=== PATIENT | female | born 1985 | race African-American/Black ===

== ENCOUNTER 2017-04-12 15:11 | Emergency (ER) | payer OTHER ==
[2017-04-12 16:02] VITALS: BP 136/76; PULSE 63; TEMP 98.3; BMI 26.6
--- NOTE | 2017-04-12 16:55 | PDOC ---
History of Present Illness - General Stated Complaint: FALL, LEG PAIN Time Seen by Provider: 04/12/17 16:23 History Source: Patient Exam Limitations: No Limitations - History of Present Illness Initial Comments: CHIEF COMPLAINT: 31 y/o afebrile female with no significant PMH c/o multiple cuts and scrapes s/p fall at work today. HISTORY OF PRESENT ILLNESS: The patient fell at work and scraped her right leg , left arm and right hand. She denies head trauma, LOC, neck pain, n/v/d. She is able to ambulate and move all of the joints affected. Vital signs on arrival are within normal limits. REVIEW OF SYSTEMS: GENERAL/CONSTITUTIONAL: No fever/chills. No weakness. No weight change. HEAD, EYES, EARS, NOSE AND THROAT: No change in vision. No ear pain or discharge. No sore throat. MUSCULOSKELETAL: No joint or muscle swelling or pain. No neck or back pain. SKIN: Scrapes to right leg, left arm and right hand. NEUROLOGIC: No headache, vertigo, loss of consciousness, or loss of sensation. PHYSICAL EXAM: VITAL_SIGNS: within normal limits GENERAL_APPEARANCE: alert, cooperative, no obvious discomfort. Pt is ambulatory with normal gait. MENTAL_STATUS: speech clear, oriented X 3, responds appropriately to questions. NEURO: motor intact and sensory intact in injured extremity. EXTREMITIES: 3cm x 1.5cm abrasion to dorsal, proximal left forearm without active bleeding. 2cm linear abrasion to right proximal lower extremity without active bleeding and already in primary intention with underlying swelling. Round, jun sized abrasion to palm of right hand. Full ROM of all affected joints without crepitus or deformities. SKIN: warm, dry, good color. Past History - Past Medical History Allergies/Adverse Reactions: Allergies Allergy/AdvReac Type Severity Reaction Status Date / Time No Known Allergies Allergy Verified 04/12/17 16:02 Home Medications: Ambulatory Orders Vit/Iron Fumarate/FA [ Tablet] 1 each PO DAILY 10/12/15 Vitamins (Sjr) - 1 tab PO DAILY 04/13/16 Ibuprofen [Motrin -] 600 mg PO QID #28 tablet 04/22/16 Asthma: No Cancer: No Cardiac Disorders: No Diabetes: No HTN: Yes Seizures: No Thyroid Disease: No - Reproductive History (#): 11 Para: 2 Therapeutic (s) & number: (6) Spontaneous : 2 - Immunization History Immunization Up to Date: Yes - Psycho/Social/Smoking Cessation Hx Anxiety: No Suicidal Ideation: No Smoking Status: Yes Smoking History: Current every day smoker Have you smoked in the past 12 months: Yes Number of Cigarettes Smoked Daily: 5 Information on smoking cessation initiated: No Hx Alcohol Use: No Drug/Substance Use Hx: No Substance Use Type: None Hx Substance Use Treatment: No *Physical Exam - Vital Signs Last Vital Signs Temp Pulse Resp BP Pulse Ox 98.3 F 63 18 136/76 100 04/12/17 15:53 04/12/17 15:53 04/12/17 15:53 04/12/17 15:53 04/12/17 15:53 Medical Decision Making - Medical Decision Making A/P: 31 y/o female with multiple abrasions. Cleaned all abrasions with hydrogen peroxide. Applied bacitracin to right leg and left arm abrasions and covered with bandaids. Instructed the patient to keep the areas clean and dry. Suggested she apply neosporin daily after washing and apply ice to any painful areas. Pt instructed to f/u with her doctor in 1 week and return to the ER with any worsening or concerning symptoms. The patient verbalizes understanding of all instructions, has no further questions and is awaiting discharge. *DC/Admit/Observation/Transfer Diagnosis at time of Disposition: Fall, Abrasions of multiple sites - Discharge Dispostion Disposition: HOME Condition at time of disposition: Good - Patient Instructions Printed Discharge Instructions: DI for Abrasion, How To Perform RICE (Rest, Ice , Compress, Elevate) Additional Instructions: Discharge Instructions: -Keep wounds clean and apply Neosporin daily -Keep wounds covered until healed -Apply ice to swollen areas and take Motrin if needed for pain -Return to the ER with any worsening or concerning symptoms - Post Discharge Activity Work/School Note: Back to Work
== END 2017-04-12 17:04 | disposition home or self-care (01) ==
LOC: JERFT 15:11
DX: S80.811A Abrasion, right lower leg, initial encounter (principal); S40.812A Abrasion of left upper arm, initial encounter; S60.511A Abrasion of right hand, initial encounter; I10 Essential (primary) hypertension; F17.210 Nicotine dependence, cigarettes, uncomplicated; W18.39XA Other fall on same level, initial encounter; Y93.89 Activity, other specified; Y92.12 Nursing home as the place of occurrence of the external cause; Y99.0 Civilian activity done for income or pay
CPT/HCPCS: 99281-25

== ENCOUNTER 2017-04-14 15:49 | Emergency (ER) | payer OTHER ==
[2017-04-14 15:54] VITALS: BP 148/91; PULSE 75; TEMP 98.4; BMI 26.6
--- NOTE | 2017-04-14 16:13 | PDOC ---
History of Present Illness - General Chief Complaint: Pain Stated Complaint: RT LEG PAIN Time Seen by Provider: 04/14/17 15:55 History Source: Patient Exam Limitations: No Limitations - History of Present Illness Initial Comments: 04/14/17 16:39 Chief Complaint: "My R leg hurts" Pt. is a 31 y/o female with PMH of HTN who presents to the ED c/o R leg pain. Pt. states she was seen here two days ago after she fell at work. Pt. states she was treated and after she went home developed worsening pain in her R leg. States that she has shooting pain down to her foot and admits to numbness and tingling down her leg and she is now limping while walking. Denies saddle anesthesia, and loss of bladder or bowel function. Pt. states that Tylenol has only partially helped her symptoms. Denies fevers, chills, weakness, N/V/D. Past History - Travel Traveled outside of the country in the last 30 days: No Close contact w/someone who was outside of country & ill: No - Past Medical History Allergies/Adverse Reactions: Allergies Allergy/AdvReac Type Severity Reaction Status Date / Time No Known Allergies Allergy Verified 04/14/17 15:54 Home Medications: Ambulatory Orders Cyclobenzaprine HCl [Flexeril 10 mg] 10 mg PO HS PRN #10 tablet 04/14/17 Labetalol HCl [Normodyne -] 200 mg PO ASDIR 04/14/17 Asthma: No Cancer: No Cardiac Disorders: No Diabetes: No HTN: Yes Seizures: No Thyroid Disease: No - Reproductive History (#): 11 Para: 2 Therapeutic (s) & number: (6) Spontaneous : 2 - Immunization History Immunization Up to Date: Yes - Psycho/Social/Smoking Cessation Hx Anxiety: No Suicidal Ideation: No Smoking Status: Yes Smoking History: Current every day smoker Have you smoked in the past 12 months: Yes Number of Cigarettes Smoked Daily: 5 Information on smoking cessation initiated: No Hx Alcohol Use: No Drug/Substance Use Hx: No Substance Use Type: None Hx Substance Use Treatment: No Review of Systems - Review of Systems Constitutional: No: Chills, Fever, Weakness ABD/GI: No: Other (incontinence) : No: Incontinence Musculoskeletal: Yes: Muscle Pain Integumentary: No: Bruising, Erythema Neurological: Yes: Numbness, Paresthesia, Unsteady Gait. No: Weakness *Physical Exam - Vital Signs Last Vital Signs Temp Pulse Resp BP Pulse Ox 98.4 F 75 18 148/91 100 04/14/17 15:50 04/14/17 15:50 04/14/17 15:50 04/14/17 15:50 04/14/17 15:50 - Physical Exam General Appearance: Yes: Nourished, Appropriately Dressed, Mild Distress Neck: positive: Trachea midline, Supple. negative: Tender, Rigid Vascular Pulses: Dorsalis-Pedis (R): 2+, Doralis-Pedis (L): 2+ Musculoskeletal: positive: Muscle Spasm (palpable knot over the R back at the level of L4-5), Other (Positive Flip test). negative: Decreased Range of Motion (Pain with full ROM), Vertebral Tenderness Extremity: positive: Normal Capillary Refill, Normal Inspection, Normal Range of Motion Integumentary: positive: Normal Color, Dry, Warm Neurologic: positive: patch setter II-XII NML intact, Fully Oriented, Alert, Normal Mood/ Affect, Normal Response, Motor Strength 5/5, Other (Gait with limp, intact tip toe, heel walks. (-) rhombergs sign) Deep Tendon Reflexes: Knee (L): 2+, Knee (R): 2+ Medical Decision Making - Medical Decision Making 04/14/17 17:32 Pt. is a 31 y/o female who presents to the ED with back pain and R leg pain after falling two days ago. Pt has a palpable knot over her R lower back at the level of L4-L5. In the setting of (+) flip test, most likely back spasm with sciatica. Will prescribe Tylenol and flexaril to help with the spasm. Gave pt return instructions for worsening back pain or loss of bladder or bowel function. Pt. understands all discharge instructions and all questions were answered at this time. *DC/Admit/Observation/Transfer Diagnosis at time of Disposition: Low back pain Qualifiers: Chronicity: acute Back pain laterality: right Sciatica presence: with sciatica Sciatica laterality: sciatica of right side Qualified Code(s): M54.41 - Lumbago with sciatica, right side - Discharge Dispostion Admit: No - Prescriptions Prescriptions: Cyclobenzaprine HCl [Flexeril 10 mg] 10 mg PO HS PRN #10 tablet PRN Reason: spasm - Referrals Referrals: Rene Erazo MD [Staff Physician] - - Patient Instructions Printed Discharge Instructions: DI for Low Back Pain Additional Instructions: You have back pain that is causing your numbness and tingling. You were prescribed Flexeril for the spasm. Take the flexaril tonight. Tomorrow take one Flexeril every 8 hours. After tomorrow take the Flexeril at night as needed for spasm. Do not drive after taking the Flexeril. Take Tylenol as needed for pain. Gentle stretching will help your symptoms. You may use a heating pad or twenty minute periods for 2-4 times a day. Follow up with your primary care provider. If you symptoms do not resolve in 1-2 weeks, follow up with ortho. There is a referral for an orthopedist in your paper work. Return to the ED if you have worsening of your symptoms - Post Discharge Activity Work/School Note: Back to Work
[2017-04-14] MEDS ORDERED: ACETAMINOPHEN 325 MG TABLET (FP) PO ONE (16:35)
[2017-04-14] MEDS ORDERED: ACETAMINOPHEN 325 MG TABLET (FP) ONE (16:39)
== END 2017-04-14 17:08 | disposition home or self-care (01) ==
LOC: JER 15:49 → JERFT 15:49
DX: M54.41 Lumbago with sciatica, right side (principal); W18.30XA Fall on same level, unspecified, initial encounter; Y93.9 Activity, unspecified; Y92.9 Unspecified place or not applicable; Y99.0 Civilian activity done for income or pay; I10 Essential (primary) hypertension; F17.210 Nicotine dependence, cigarettes, uncomplicated
CPT/HCPCS: 99281-25

== ENCOUNTER 2017-08-16 17:31 | Emergency (ER) | payer OTHER ==
[2017-08-16 17:55] VITALS: BP 135/78; PULSE 90; TEMP 98.5; BMI 27.8
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
== END 2017-08-16 21:53 | disposition home or self-care (01) ==
LOC: JER 17:31
PROC: 3E023NZ Introduction of Analgesics, Hypnotics, Sedatives into Muscle, Percutaneous Approach (ICD-10-PCS; principal; 2017-08-16)
PROC: 3E0233Z Introduction of Anti-inflammatory into Muscle, Percutaneous Approach (ICD-10-PCS; 2017-08-16)
PROC: 3E023GC Introduction of Other Therapeutic Substance into Muscle, Percutaneous Approach (ICD-10-PCS; 2017-08-16)
DX: H11.32 Conjunctival hemorrhage, left eye (principal); R51 Headache; I10 Essential (primary) hypertension; F17.210 Nicotine dependence, cigarettes, uncomplicated
CPT/HCPCS: 70450-TC; 84703; 99282-25

== ENCOUNTER 2017-08-18 15:32 | Emergency (ER) | payer OTHER ==
[2017-08-18 15:44] VITALS: BP 141/76; PULSE 67; TEMP 98.9; BMI 28.0
--- NOTE | 2017-08-18 16:46 | PDOC ---
History of Present Illness <Sheng Peña - Last Filed: 08/18/17 17:46> - General History Source: Patient Exam Limitations: No Limitations - History of Present Illness Initial Comments: 08/18/17 18:00 Patient is a 32 year old female with a significant past medical history of HTN who presents to the ED with complaints of head pain that began 2 days ago. Patient reports experiencing head pain behind her eyes that began 2 days prior and has showed no signs of subsiding. Patient reports pain is an intense pain behind her eyes that do not allow her to move her eyes up or down without causing increased pain. She reports increase in intensity with light. Patient states she has not taken any medication for pain stating she will have to take 8 tylenol in order to relieve the pain. Patient was given head CT two days ago with results being negative. Denies chest pain, SOB. Denies nausea, vomiting. Denies fevers, chills. Denies any other symptoms. Allergies: None Social history: Current everyday smoker. No alcohol. No illicit drugs. Surgical history: None PMD: None <Scooter Lopez - Last Filed: 08/18/17 18:00> - General Chief Complaint: Headache Stated Complaint: REVISIT/ HEADACHES, EYE PAIN Time Seen by Provider: 08/18/17 16:43 Past History - Past Medical History Asthma: No Cancer: No Cardiac Disorders: No Diabetes: No HTN: Yes Seizures: No Thyroid Disease: No - Reproductive History (#): 11 Para: 2 Therapeutic (s) & number: (6) Spontaneous : 2 - Immunization History Immunization Up to Date: Yes - Suicide/Smoking/Psychosocial Hx Smoking Status: Yes Smoking History: Current every day smoker Have you smoked in the past 12 months: Yes Number of Cigarettes Smoked Daily: 5 Information on smoking cessation initiated: Yes 'Breaking Loose' booklet given: 08/18/17 Hx Alcohol Use: No Drug/Substance Use Hx: No Substance Use Type: None Hx Substance Use Treatment: No <Sheng Peña - Last Filed: 08/18/17 17:46> <Scooter Lopez - Last Filed: 08/18/17 18:00> - Past Medical History Allergies/Adverse Reactions: Allergies Allergy/AdvReac Type Severity Reaction Status Date / Time No Known Allergies Allergy Verified 08/18/17 15:40 Home Medications: Ambulatory Orders Cyclobenzaprine HCl [Flexeril 10 mg] 10 mg PO HS PRN #10 tablet 04/14/17 Labetalol HCl [Normodyne -] 200 mg PO ASDIR 04/14/17 Meloxicam [Mobic (Nf) -] 15 mg PO ASDIR 08/16/17 Ondansetron [Zofran Odt -] 4 mg SL TID #21 od.tablet 08/18/17 Oxycodone HCl/Acetaminophen [Percocet 5-325 mg Tablet] 1 - 2 tab PO Q6H #20 tab MDD 6 08/18/17 Review of Systems - Review of Systems Able to Perform ROS?: Yes Comments:: 08/18/17 18:00 GENERAL/CONSTITUTIONAL: No fever or chills. No weakness. HEAD, EYES, EARS, NOSE AND THROAT: No change in vision. No ear pain or discharge. No sore throat. CARDIOVASCULAR: No chest pain or shortness of breath. RESPIRATORY: No cough, wheezing, or hemoptysis. GASTROINTESTINAL: No nausea, vomiting, diarrhea or constipation. GENITOURINARY: No dysuria, frequency, or change in urination. MUSCULOSKELETAL: No joint or muscle swelling or pain. No neck or back pain. SKIN: No rash NEUROLOGIC: +Headache No vertigo, loss of consciousness, or change in strength/sensation. ENDOCRINE: No increased thirst. No abnormal weight change. HEMATOLOGIC/LYMPHATIC: No anemia, easy bleeding, or history of blood clots. ALLERGIC/IMMUNOLOGIC: No hives or skin allergy. All Other Systems: Reviewed and Negative <Scooter Lopez - Last Filed: 08/18/17 18:00> *Physical Exam - Vital Signs Last Vital Signs Temp Pulse Resp BP Pulse Ox 98.9 F 67 18 141/76 100 08/18/17 15:42 08/18/17 15:42 08/18/17 15:42 08/18/17 15:42 08/18/17 15:42 <Sheng Peña - Last Filed: 08/18/17 17:46> - Vital Signs Last Vital Signs Temp Pulse Resp BP Pulse Ox 98.9 F 67 18 141/76 100 08/18/17 15:42 08/18/17 15:42 08/18/17 15:42 08/18/17 15:42 08/18/17 15:42 - Physical Exam Comments: 08/18/17 18:00 GENERAL: Awake, alert, and fully oriented, in no acute distress HEAD: +Facial edema. No signs of trauma EYES: PERRLA, EOMI, sclera anicteric, conjunctiva clear ENT: +Conjunctival hemorrhage of left eye. +Extraocular muscles intact. Auricles normal inspection, hearing grossly normal, nares patent, oropharynx clear without exudates. Moist mucosa NECK: Normal ROM, supple, no lymphadenopathy, JVD, or masses LUNGS: Breath sounds equal, clear to auscultation bilaterally. No wheezes, and no crackles HEART: Regular rate and rhythm, normal S1 and S2, no murmurs, rubs or gallops ABDOMEN: Soft, nontender, normoactive bowel sounds. No guarding, no rebound. No masses EXTREMITIES: Normal range of motion, no edema. No clubbing or cyanosis. No cords, erythema, or tenderness NEUROLOGICAL: Cranial nerves II through XII grossly intact. Normal speech, normal gait SKIN: Warm, Dry, normal turgor, no rashes or lesions noted <Scooter Lopez - Last Filed: 08/18/17 18:00> *DC/Admit/Observation/Transfer - Discharge Dispostion Admit: No - Attestations Physician Attestion: 08/18/17 16:45 I, Dr. Sheng Peña, attest that this document has been prepared under my direction and personally reviewed by me in its entirety. I further attest, that it accurately reflects all work, treatment, procedures and medical decision -making performed by me. <Sheng Peña - Last Filed: 08/18/17 17:46> - Attestations Scribe Attestion: 08/18/17 18:00 Documentation prepared by Scooter Lopez, acting as medical records manager for Sheng Peña MD/DO. <Scooter Lopez - Last Filed: 08/18/17 18:00> Diagnosis at time of Disposition: Facial pain, acute - Discharge Dispostion Disposition: HOME Condition at time of disposition: Good - Prescriptions Prescriptions: Oxycodone HCl/Acetaminophen [Percocet 5-325 mg Tablet] 1 - 2 tab PO Q6H #20 tab MDD 6 Ondansetron [Zofran Odt -] 4 mg SL TID #21 od.tablet - Referrals Referrals: STAFF,NOT ON [Primary Care Provider] - - Patient Instructions Printed Discharge Instructions: Eye Contusion, Contusion, DI for Eye Contusion , DI for Contusion Additional Instructions: Maureen- I am sorry that you have to hurt so much right now. Take the percocet only if you absolutely need it. It can be addicting. It will upset your stomach..... it upsets everyone's stomach so take the zofran before you take the percocet. Return to us if worse or new symptoms occur Best- Dr. Sheng Peña
[2017-08-18] MEDS ORDERED: ONDANSETRON *ODT* 4 MG TABLET SL ONE (17:42)
[2017-08-18] MEDS ORDERED: KETOROLAC TROMETHAMINE 60 MG/2 ML VIAL IM ONE (17:42)
[2017-08-18] MEDS ORDERED: HYDROmorphone HCL CARPU-JECT 1 MG/1 ML DISP.SYRIN IM ONE (17:42)
[2017-08-18] MEDS ORDERED: HYDROmorphone HCL CARPU-JECT 1 MG/1 ML DISP.SYRIN ONE (17:50)
[2017-08-18] MEDS ORDERED: ONDANSETRON *ODT* 4 MG TABLET ONE (17:50)
[2017-08-18] MEDS ORDERED: KETOROLAC TROMETHAMINE 60 MG/2 ML VIAL ONE (17:50)
== END 2017-08-18 18:37 | disposition home or self-care (01) ==
LOC: JER 15:32
PROC: 3E033GC Introduction of Other Therapeutic Substance into Peripheral Vein, Percutaneous Approach (ICD-10-PCS; principal; 2017-08-18)
PROC: 3E033NZ Introduction of Analgesics, Hypnotics, Sedatives into Peripheral Vein, Percutaneous Approach (ICD-10-PCS; 2017-08-18)
PROC: 3E0333Z Introduction of Anti-inflammatory into Peripheral Vein, Percutaneous Approach (ICD-10-PCS; 2017-08-18)
DX: J34.89 Other specified disorders of nose and nasal sinuses (principal)
CPT/HCPCS: 99282-25

== ENCOUNTER 2017-08-25 13:48 | Emergency (ER) | payer OTHER ==
[2017-08-25 13:54] VITALS: BP 135/76; PULSE 90; TEMP 99; BMI 28.0
--- NOTE | 2017-08-25 14:35 | PDOC ---
Suture Removal/Wound Check HPI - History of Present Illness Chief Complaint: Suture/Staple Removal(Here) Stated Complaint: SUTURE/STAPLE REMOVAL Time Seen by Provider: 08/25/17 14:29 History Source: Yes: Patient Exam Limitations: Yes: No Limitations Treated at: [facility] Date of Last ED visit: 08/16/17 - Previous ED Treatment Type of procedure performed on last visit: Yes: Laceration Repair Tetanus Immunization: Yes: Up to Date Antibiotics Prescribed: No Past History - Past Medical History Allergies/Adverse Reactions: Allergies Allergy/AdvReac Type Severity Reaction Status Date / Time No Known Allergies Allergy Verified 08/25/17 13:54 Home Medications: Ambulatory Orders NK [No Known Home Medication] 08/25/17 Asthma: No Cancer: No Cardiac Disorders: No Diabetes: No HTN: Yes Seizures: No Thyroid Disease: No - Reproductive History (#): 11 Para: 2 Therapeutic (s) & number: (6) Spontaneous : 2 - Immunization History Immunization Up to Date: Yes - Suicide/Smoking/Psychosocial Hx Smoking Status: Yes Smoking History: Never smoked Have you smoked in the past 12 months: Yes Number of Cigarettes Smoked Daily: 5 Information on smoking cessation initiated: No 'Breaking Loose' booklet given: 08/18/17 Hx Alcohol Use: No Drug/Substance Use Hx: No Substance Use Type: None Hx Substance Use Treatment: No Suture Removal/Wound Check PE - Physical Exam Laceration/Wound Check Symptoms: reports: None Current Severity Level: None Maximum Severity Level: None Pain Localization: None *Review of Systems - Review of Systems Constitutional: No: Symptoms Reported Integumentary: No: Symptoms Reported Medical Decision Making - Medical Decision Making 08/25/17 14:37 A/P: Patient here for suture removal 7 sutures removed from forehead was no localized suture irritation. Encouraged to follow up with neurology for persistent headaches. No keloid noted today upon arrival. Will follow up as needed. *DC/Admit/Observation/Transfer Diagnosis at time of Disposition: Visit for suture removal - Discharge Dispostion Disposition: HOME Condition at time of disposition: Good Admit: No - Referrals Referrals: Rene Kumar MD [Staff Physician] - Jose Jara MD [Staff Physician] - - Patient Instructions Printed Discharge Instructions: DI for Suture Removal Additional Instructions: Please return to the ER if any concerns, please try to keep area out of direct sunlight.
== END 2017-08-25 14:42 | disposition home or self-care (01) ==
LOC: JERFT 13:48
DX: Z48.02 Encounter for removal of sutures (principal)
CPT/HCPCS: 99281-25

== ENCOUNTER 2017-09-21 10:55 | Emergency (ER) | payer OTHER ==
[2017-09-21 11:07] VITALS: TEMP 98.2; BMI 28.0
[2017-09-21] MEDS ORDERED: ONDANSETRON 4 MG/2 ML VIAL IVPUSH ONE (11:52)
[2017-09-21] MEDS ORDERED: KETOROLAC TROMETHAMINE 30 MG/1 ML VIAL IVPUSH ONE (11:52)
[2017-09-21] MEDS ORDERED: SODIUM CHLORIDE 1,000 ML IV STA (11:53)
[2017-09-21] MEDS ORDERED: METOCLOPRAMIDE HCL INJECTION 10 MG/2 ML VIAL IVPB ONE (11:53)
--- NOTE | 2017-09-21 12:03 | PDOC ---
History of Present Illness - General Chief Complaint: Nausea/Vomiting Stated Complaint: VOMITING Time Seen by Provider: 09/21/17 11:39 History Source: Patient - History of Present Illness Timing/Duration: reports: constant Quality: reports: severe Abdominal Pain Onset Location: reports: generalized abdomen Past History - Past Medical History Allergies/Adverse Reactions: Allergies Allergy/AdvReac Type Severity Reaction Status Date / Time No Known Allergies Allergy Verified 09/21/17 11:07 Home Medications: Ambulatory Orders Labetalol HCl [Normodyne -] 200 mg PO DAILY #30 tablet 09/21/17 Asthma: No Cancer: No Cardiac Disorders: No COPD: No Diabetes: No HTN: Yes Seizures: No Thyroid Disease: No - Reproductive History (#): 11 Para: 2 Therapeutic (s) & number: (6) Spontaneous : 2 - Immunization History Immunization Up to Date: Yes - Suicide/Smoking/Psychosocial Hx Smoking Status: Yes Smoking History: Current every day smoker Have you smoked in the past 12 months: Yes Number of Cigarettes Smoked Daily: 3 Information on smoking cessation initiated: No 'Breaking Loose' booklet given: 08/18/17 Hx Alcohol Use: Yes (SOCIAL) Drug/Substance Use Hx: No Substance Use Type: None Hx Substance Use Treatment: No Review of Systems - Review of Systems Constitutional: Yes: Malaise. No: Chills, Fever HEENTM: No: Blurred Vision ABD/GI: Yes: Nausea, Vomiting. No: Blood Streaked Bowels, Constipated, Diarrhea : No: Dysuria, Flank Pain, Hematuria Neurological: Yes: Headache. No: Dizziness *Physical Exam - Vital Signs Last Vital Signs Temp Pulse Resp BP Pulse Ox 98.2 F 65 20 155/112 100 09/21/17 11:03 09/21/17 11:03 09/21/17 11:03 09/21/17 11:03 09/21/17 11:03 - Physical Exam General Appearance: Yes: Appropriately Dressed, Moderate Distress HEENT: positive: Normal Voice Neck: positive: Supple Respiratory/Chest: positive: Lungs Clear, Normal Breath Sounds. negative: Respiratory Distress Cardiovascular: positive: Regular Rate, S1, S2 Gastrointestinal/Abdominal: positive: Tender (to mid upper abd, no RUQ ttp and NT over mcburneys) Musculoskeletal: negative: CVA Tenderness Integumentary: positive: Dry, Warm Neurologic: positive: Fully Oriented, Alert, Normal Mood/Affect ED Treatment Course - LABORATORY CBC & Chemistry Diagram: 09/21/17 12:19 09/21/17 12:19 - RADIOLOGY Radiology Studies Ordered: Category Date Time Status HEAD CT WITHOUT CONTRAST [CT] Stat CT Scan 09/21/17 11:53 Ordered Medical Decision Making - Medical Decision Making 09/21/17 11:53 32-year-old female, history of hypertension, non-compliant with meds x several months, alcohol abuse, almost daily marijuana use, here with abdominal pain. Patient reports waking up with severe diffuse abdominal pain this morning with multiple episodes of non-bloody, nausea, vomiting. Denies change in bowel movements, dysuria, fever or chills. Denies history of similar episodes. No unusual food, sick contacts or recent travel. Also complaining of intermittent diffuse headache x several months. No visual changes, slurred speech or focal weakness. See exam Abd pain w/ n/v Possible gastritis vs cyclical n/v 2/2 cannibus use vs pancreatitis given ETOH abuse, less likely appy, r/o preg -pain control -antiemeetic -IVF -labs -dispo pending [facility] Non-compliant w/ BP meds BP elevated in ED, no focal deficits -will check head CT 09/21/17 12:04 09/21/17 14:[address] unremarkable. Pt well radha now and reports feeling much better. is able to pa po. Pt advised to refrain from marijuana use. Refill of labetalol sent to pharmacy. Pt to f/u with her PMD 09/21/17 14:10 09/21/17 14:11 *DC/Admit/Observation/Transfer Diagnosis at time of Disposition: Abdominal pain Qualifiers: Abdominal location: generalized Qualified Code(s): R10.84 - Generalized abdominal pain; R10.84 - Generalized abdominal pain - Discharge Dispostion Disposition: HOME Condition at time of disposition: Improved - Prescriptions Prescriptions: Labetalol HCl [Normodyne -] 200 mg PO DAILY #30 tablet - Patient Instructions Printed Discharge Instructions: DI for Abdominal Pain-Adult Additional Instructions: Maintain adequate hydration and take tylenol as needed for pain Refrain from excessive ETOH or marijuana use as can cause abd pain and nausea, vomiting Take BP medications as directed and follow up with PMD - Post Discharge Activity Forms/Work/School Notes: Back to Work
[2017-09-21] MEDS ORDERED: KETOROLAC TROMETHAMINE 30 MG/1 ML VIAL ONE (12:05)
[2017-09-21] MEDS ORDERED: METOCLOPRAMIDE HCL INJECTION 10 MG/2 ML VIAL ONE (12:05)
[2017-09-21] MEDS ORDERED: ONDANSETRON 4 MG/2 ML VIAL ONE (12:06)
[2017-09-21 12:32] LABS: BASOPHIL 0.7 % (0-2.0); EOSINOPHIL 1.8 % (0-4.5); MCH 28.3 pg (25.7-33.7); MCHC 33.3 g/dl (32.0-36.0); MEAN CELL VOLUME 84.9 fl (80-96); MEAN PLT VOLUME 9.4 fl (7.5-11.1); NEUTROPHILS 75.7 % (42.8-82.8); PLATELET COUNT 252 K/MM3 (134-434); RDW 13.6 % (11.6-15.6); WHITE BLOOD COUNT 6.6 K/mm3 (4.0-10.0)
[2017-09-21 13:05] LABS: ALBUMIN 4.4 g/dl (3.4-5.0); ANION GAP 6 (8-16); BILIRUBIN,TOTAL 0.3 mg/dL (0.2-1.0); CALCIUM 9.1 mg/dL (8.5-10.1); CO2 29 mmol/L (21-32); CREATININE 0.9 mg/dL (0.55-1.02); GLUCOSE,RANDOM 87 mg/dL (74-106); SGOT/AST 15 U/L (15-37); SGPT/ALT 22 U/L (12-78); TOT PROT 8.2 g/dl (6.4-8.2)
[2017-09-21 13:06] LABS: ALK PHOS 81 U/L (45-117)
[2017-09-21 14:53] VITALS: BP 126/81; PULSE 60
== END 2017-09-21 14:53 | disposition home or self-care (01) ==
LOC: JER 10:55
PROC: 3E0333Z Introduction of Anti-inflammatory into Peripheral Vein, Percutaneous Approach (ICD-10-PCS; principal; 2017-09-21)
PROC: 3E033GC Introduction of Other Therapeutic Substance into Peripheral Vein, Percutaneous Approach (ICD-10-PCS; 2017-09-21)
PROC: 3E0337Z Introduction of Electrolytic and Water Balance Substance into Peripheral Vein, Percutaneous Approach (ICD-10-PCS; 2017-09-21)
DX: R10.84 Generalized abdominal pain (principal); F17.210 Nicotine dependence, cigarettes, uncomplicated
CPT/HCPCS: 36415; 70450-TC; 80053; 83690; 84702; 85025; 99282-25

== ENCOUNTER 2018-09-17 12:27 | Emergency (ER) | payer OTHER ==
[2018-09-17 12:32] VITALS: BP 117/87; PULSE 101; TEMP 98.3; BMI 29.5
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
== END 2018-09-17 13:42 | disposition home or self-care (01) ==
LOC: JERFT 12:27 → JER 12:27 → JERFT 13:42
PROC: 2W3CX1Z Immobilization of Right Lower Arm using Splint (ICD-10-PCS; principal; 2018-09-17)
DX: S63.601A Unspecified sprain of right thumb, initial encounter (principal); W19.XXXA Unspecified fall, initial encounter; Y93.89 Activity, other specified; Y92.89 Other specified places as the place of occurrence of the external cause; Y99.8 Other external cause status; I10 Essential (primary) hypertension; F17.210 Nicotine dependence, cigarettes, uncomplicated
CPT/HCPCS: 29125; 73110-TC-RT-FY; 73130-TC-RT-FY; 99281-25

== ENCOUNTER 2019-12-31 08:48 | Emergency (ER) | payer OTHER ==
[2019-12-31 09:00] VITALS: BP 118/70; PULSE 88; TEMP 97.8; BMI 29.5
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
[2019-12-31] MEDS ORDERED: LIDOCAINE 5% TOPICAL PATCH TP ONE (09:35)
[2019-12-31] MEDS ORDERED: ACETAMINOPHEN 325 MG TABLET (FP) PO ONE (09:35)
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
[2019-12-31] MEDS ORDERED: ACETAMINOPHEN 325 MG TABLET (FP) ONE (09:52)
[2019-12-31] MEDS ORDERED: LIDOCAINE 5% TOPICAL PATCH ONE (09:52)
[2019-12-31] MEDS ORDERED: KETOROLAC TROMETHAMINE 30 MG/1 ML VIAL IM ONE (09:56)
[2019-12-31] MEDS ORDERED: KETOROLAC TROMETHAMINE 30 MG/1 ML VIAL ONE (10:18)
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
--- NOTE | 2019-12-31 14:58 | EKG ---
Test Reason : Blood Pressure : / mmHG Vent. Rate : 067 BPM Atrial Rate : 067 BPM P-R Int : 148 ms QRS Dur : 084 ms QT Int : 400 ms P-R-T Axes : 055 057 042 degrees QTc Int : 422 ms NORMAL SINUS RHYTHM WITH SINUS ARRHYTHMIA NORMAL ECG NO PREVIOUS ECGS AVAILABLE Confirmed by Chris French ([id number]) on 12/31/2019 2:57:48 PM Referred By: Confirmed By:Chris French
[2019-12-31] MEDS ORDERED: LIDOCAINE PATCH REMOVAL MC SCH (22:00)
== END 2019-12-31 11:17 | disposition home or self-care (01) ==
LOC: JER 08:48 → SUPCPDRO 08:48 → JER 11:17
PROC: 3E0233Z Introduction of Anti-inflammatory into Muscle, Percutaneous Approach (ICD-10-PCS; principal; 2019-12-31)
DX: S13.4XXD Sprain of ligaments of cervical spine, subsequent encounter (principal); V49.49XD Driver injured in collision with other motor vehicles in traffic accident, subsequent encounter; I10 Essential (primary) hypertension
CPT/HCPCS: 71101-TC-LT-FY; 93005; 93010; 99284-25